=== PATIENT | female | born 1980 | race Caucasian/White ===

== ENCOUNTER → 2020-07-12 | Outpatient (CLI) | payer OTHER ==
[~2020-07-12] MED LIST: MULT-1146 PO
== END | disposition home or self-care (01) ==
LOC: LAB 12:00
PROVIDERS: ATTEND Specialist
DX: Z01.812 Encounter for preprocedural laboratory examination (principal); Z20.822 Contact with and (suspected) exposure to COVID-19
CPT/HCPCS: C9803; U0003; U0005

== ENCOUNTER 2020-07-14 05:32 | Inpatient (IN) | payer OTHER ==
[~2020-07-14] VITALS: Ht 157.5 cm; Wt 62.6 kg
[2020-07-14] MEDS ORDERED: LACTATED RINGERS 1,000 ML IV SCH (06:15)
[2020-07-14] MEDS ORDERED: BUPIVACAINE HCL/PF 0.25% (2.5MG/ML) 10ML ONE (06:59)
[2020-07-14] MEDS ORDERED: BUPIVACAINE HCL/PF 0.5% (5MG/ML) 10ML ONE (06:59)
[2020-07-14] MEDS ORDERED: SKIN ADHESIVE 0.7 GM EA TOP ONE (06:59)
[2020-07-14] MEDS ORDERED: VASOPRESSIN 20 UNIT/ML 1ML ONE (07:01)
[2020-07-14 07:02] LABS: UCG SCREEN NEGATIVE
[2020-07-14] MEDS ORDERED: MEPERIDINE HCL/PF 25MG/ML CPJ IV PRN ×2 (07:45)
[2020-07-14] MEDS ORDERED: SODIUM CHLORIDE 0.9% 1,000 ML IV ONE (07:45)
[2020-07-14] MEDS ORDERED: HYDROMORPHONE HCL/PF 2MG/ML CPJ IV PRN (07:45)
[2020-07-14] MEDS ORDERED: ONDANSETRON HCL 4MG/2ML INJ IV PRN ×2 (07:45→10:45)
[2020-07-14] MEDS ORDERED: FENTANYL CITRATE/PF 50MCG/ML 2ML VIAL ONE ×3 (07:57→09:13)
[2020-07-14] MEDS ORDERED: MIDAZOLAM HCL 2 MG/2 ML VIAL ONE (07:58)
[2020-07-14] MEDS ORDERED: SODIUM CHLORIDE 0.9% 10ML VIAL ONE (07:58)
[2020-07-14] MEDS ORDERED: GLYCOPYRROLATE 0.2 MG/ML 2ML VIAL ONE (07:58)
[2020-07-14] MEDS ORDERED: ROCURONIUM BROMIDE 10MG/ML VIAL 5ML IV ONE (07:58)
[2020-07-14] MEDS ORDERED: NEOSTIGMINE METHYLSULFATE 1MG/ML 10 ML VIAL ONE (07:58)
[2020-07-14] MEDS ORDERED: PROPOFOL 200MG/20ML VIAL IV ONE (07:58)
[2020-07-14] MEDS ORDERED: PHENYLEPHRINE HCL 10 MG/ML 1ML (IV VIAL) IV ONE ×2 (07:58→08:48)
[2020-07-14] MEDS ORDERED: CEFAZOLIN SODIUM 1000MG/VIAL ONE (07:58)
[2020-07-14] MEDS ORDERED: METOCLOPRAMIDE HCL 10MG/2ML VIAL ONE (07:59)
[2020-07-14] MEDS ORDERED: SUCCINYLCHOLINE CHLORIDE 200MG/10ML IV ONE (07:59)
[2020-07-14] MEDS ORDERED: DEXAMETHASONE 4MG/ML 1ML VIAL ONE (07:59)
[2020-07-14] MEDS ORDERED: ONDANSETRON HCL 4MG/2ML INJ ONE (07:59)
[2020-07-14] MEDS ORDERED: BACITRACIN 15GM TUBE TOP ONE (09:57)
[2020-07-14] MEDS ORDERED: KETOROLAC 30MG/ML VIAL IM NR (10:45)
[2020-07-14] MEDS ORDERED: SIMETHICONE 80MG TABLET CHEW PO PRN (13:00)
[2020-07-14] MEDS: DOCUSATE SODIUM 100MG CAPSULE PO SCH (16:29)
[2020-07-14] MEDS: KETOROLAC 30MG/ML VIAL IV PRN (16:49)
[2020-07-14 17:41] LABS: HEMATOCRIT. 31.8 % (36.0-48.0); HEMOGLOBIN. 10.9 g/dL (12.0-16.0); MEAN CORPUSCULAR HEMOGLOBIN 30.4 pg (28.0-32.0); MEAN CORPUSCULAR VOLUME 88.7 fL (81.0-99.0); MEAN PLATELET VOLUME 8.7 fl (7.4-10.4); PLATELET 269 x1000/uL (130-400); RED BLOOD CELL COUNT 3.58 mill/uL (4.2-5.4); RED CELL DISTRIBUTION WIDTH 13.6 % (11.6-14.6)
[2020-07-14 17:51] LABS: CHLORIDE 107 mEq/L (98-107)
[2020-07-14 18:27] VITALS: BP 111/72
[2020-07-14 19:31] LABS: PLATELET ESTIMATE NORMAL
[2020-07-14 20:00] VITALS: BP 100/58
[2020-07-14] MEDS: ACETAMINOPHEN 325MG TABLET PO PRN (20:26)
[2020-07-14] MEDS: FAMOTIDINE 20MG/2ML VIAL IV SCH (21:56)
[2020-07-14] MEDS: CEFAZOLIN 1000MG PREMIX 50 ML IV SCH (21:56)
[2020-07-15] VITALS: BP 95/46
[2020-07-15] MEDS: KETOROLAC 30MG/ML VIAL IV PRN ×2 (00:04→06:07)
[2020-07-15 04:00] VITALS: BP 96/50
[2020-07-15] MEDS: CEFAZOLIN 1000MG PREMIX 50 ML IV SCH (05:08)
[2020-07-15 06:52] LABS: BASOPHILS % 0.1 % (0.0-2.0); HEMOGLOBIN. 9.1 g/dL (12.0-16.0); LYMPHOCYTES % 9.2 % (20.0-50.0); MEAN CORPUSCULAR HEMOGLOBIN 30.1 pg (28.0-32.0); MEAN CORPUSCULAR VOLUME 89.4 fL (81.0-99.0); MEAN PLATELET VOLUME 9.1 fl (7.4-10.4); MONOCYTES % 8.3 % (2.0-8.0); NEUTROPHILS % 82.4 % (40.0-76.0); PLATELET 252 x1000/uL (130-400); RED BLOOD CELL COUNT 3.02 mill/uL (4.2-5.4); RED CELL DISTRIBUTION WIDTH 13.5 % (11.6-14.6)
[2020-07-15] MEDS ORDERED: IBUP-2029 MT (07:25)
[2020-07-15] MEDS ORDERED: FERR325T6 MT (07:25)
[2020-07-15] MEDS ORDERED: DOCU-150 PO (07:25)
[2020-07-15] MEDS ORDERED: SODIUM CHLORIDE 0.9% 100 ML IV NR (07:30)
[2020-07-15 08:00] VITALS: BP 107/70
[2020-07-15] MEDS ORDERED: PR125 MT (08:21)
[2020-07-15] MEDS: FAMOTIDINE 20MG/2ML VIAL IV SCH (08:37)
[2020-07-15] MEDS: DOCUSATE SODIUM 100MG CAPSULE PO SCH (08:38)
[2020-07-15] MEDS: ACETAMINOPHEN 325MG TABLET PO PRN (09:24)
[2020-07-15 10:11] VITALS: BP 107/70
== END 2020-07-15 11:00 | disposition home or self-care (01) | DRG 513 ==
LOC: OR 05:32 → 6EST 05:33
PROVIDERS: ADMIT Specialist; ATTEND Specialist
PROC: 0UT9FZZ Resection of Uterus, Via Natural or Artificial Opening With Percutaneous Endoscopic Assistance (ICD-10-PCS; principal; 2020-07-14)
PROC: 0UT2FZZ Resection of Bilateral Ovaries, Via Natural or Artificial Opening With Percutaneous Endoscopic Assistance (ICD-10-PCS; 2020-07-14)
PROC: 0UT7FZZ Resection of Bilateral Fallopian Tubes, Via Natural or Artificial Opening With Percutaneous Endoscopic Assistance (ICD-10-PCS; 2020-07-14)
DX: N80.9 Endometriosis, unspecified (principal)
CPT/HCPCS: 36415; 80048; 81025; 85025; 88307; C1725; J0330; J0690; J1100; J1885; J2175; J2250; J2370; J2405; J2704; J2710; J2765; J3010; J3490; J7030; J7040